=== PATIENT | male | born 1955 | race African-American/Black ===

== ENCOUNTER 2022-03-25 18:23 | Inpatient (IN) | payer OTHER, MEDICAID ==
[~2022-03-25] VITALS: Ht 167.6 cm; Wt 78.5 kg
[2022-03-26] MEDS ORDERED: ONDANSETRON HCL 4MG/2ML INJ IV STA (02:43)
[2022-03-26] MEDS ORDERED: MORPHINE SULFATE 4 MG/ML CPJ (NOT FOR IM USE) IV STA (02:43)
[2022-03-26] MEDS ORDERED: PIPERACILLIN/TAZ 3.375G PREMIX 50 ML IV ONE (02:45)
[2022-03-26] MEDS ORDERED: VANCOMYCIN 1G PREMIX 200 ML IV ONE (02:45)
[2022-03-26] MEDS ORDERED: SODIUM CHLORIDE 0.9% 1,000 ML IV ONE (02:45)
[2022-03-26 04:00] LABS: EOSINOPHILS % 3.8 % (0.0-5.0); HEMATOCRIT. 37.5 % (42.0-52.0); HEMOGLOBIN. 12.6 g/dL (14.0-18.0); LYMPHOCYTES % 15.4 % (20.0-50.0); MEAN CORPUSCULAR HEMOGLOBIN 27.3 pg (28.0-32.0); MEAN CORPUSCULAR VOLUME 81.3 fL (80.0-94.0); MEAN PLATELET VOLUME 8.2 fl (7.4-10.4); MONOCYTES % 11.5 % (2.0-8.0); NEUTROPHILS % 68.3 % (40.0-76.0); PLATELET 468 x1000/uL (130-400); RED BLOOD CELL COUNT 4.61 mill/uL (4.7-6.1); RED CELL DISTRIBUTION WIDTH 15.8 % (11.6-14.6)
[2022-03-26 04:19] LABS: CHLORIDE 111 mEq/L (98-107)
[2022-03-26 04:29] LABS: PROTHROMBIN TIME 10.6 sec (9.6-11.0)
[2022-03-26] MEDS ORDERED: IPRATROPIUM/ALBUTEROL 0.5-3(2.5)MG/3ML NEB NEB PRN (07:15)
[2022-03-26] MEDS ORDERED: MAGNESIUM/ALUMINUM HYDROXIDE/SIMETHICONE 30ML UDC PO PRN (07:15)
[2022-03-26] MEDS ORDERED: CLONIDINE 0.1MG TABLET PO PRN (07:15)
[2022-03-26] MEDS ORDERED: KETOROLAC 15MG/ML VIAL IV PRN (07:15)
[2022-03-26] MEDS ORDERED: GUAIFENESIN 200MG/10ML SUGAR FREE UDC PO PRN (07:15)
[2022-03-26] MEDS ORDERED: DOCUSATE SODIUM 100MG CAPSULE PO PRN (07:15)
[2022-03-26] MEDS ORDERED: DEXTROSE 50% WATER 50ML SYRINGE IV PRN (07:15)
[2022-03-26] MEDS ORDERED: ONDANSETRON HCL 4MG/2ML INJ IV PRN (07:15)
[2022-03-26] MEDS ORDERED: NITROGLYCERIN 0.4MG TABLET SL SL PRN (07:15)
[2022-03-26] MEDS ORDERED: ACETAMINOPHEN 325MG TABLET PO PRN ×2 (07:15)
[2022-03-26] MEDS: BLOOD SUGAR DIAGNOSTIC STRIP TEST SCH ×4 (09:00→22:00)
[2022-03-26] MEDS ORDERED: PIPERACILLIN/TAZOBACTAM 3.375 G in DEXTROSE 5% WATER 50 ML IV SCH (10:00)
[2022-03-26] MEDS ORDERED: VANCOMYCIN 1G PREMIX 200 ML IV SCH (10:00)
[2022-03-26 11:33] LABS: CLARITY URINE CLEAR (CLEAR); COLOR URINE YELLOW (YELLOW); KETONES URINE NEGATIVE (NEGATIVE); LEUKOCYTE ESTERASE URINE NEGATIVE (NEGATIVE); NITRITE URINE NEGATIVE (NEGATIVE); OCCULT BLOOD URINE NEGATIVE (NEGATIVE); PH URINE 6.5 (4.5-8.0); PROTEIN URINE NEGATIVE (NEGATIVE); SPECIFIC GRAVITY URINE 1.016 (1.005-1.030)
[2022-03-26 11:38] VITALS: BP 173/122
[2022-03-26 12:00] VITALS: BP 158/107
[2022-03-26] MEDS: ASPIRIN 325MG EC TABLET PO SCH (12:26)
[2022-03-26] MEDS: ASCORBIC ACID 500 MG TABLET PO SCH ×2 (12:27→22:59)
[2022-03-26] MEDS: FAMOTIDINE 20MG TABLET PO SCH ×2 (12:27→22:59)
[2022-03-26] MEDS: ZINC SULFATE 220 MG ( 50 ) CAPSULE PO SCH (12:28)
[2022-03-26] MEDS: ENOXAPARIN 40MG/0.4ML SYR SUBCUT SCH (12:29)
[2022-03-26] MEDS: LISINOPRIL 20MG TABLET PO SCH ×2 (12:29→23:00)
[2022-03-26] MEDS: AMLODIPINE 10MG TABLET PO SCH (12:29)
[2022-03-26] MEDS: INSULIN LISPRO 100 UNITS/ML SUBCUT SCH ×4 (12:35→23:00)
[2022-03-26 14:00] VITALS: BP 167/98
[2022-03-26 16:00] VITALS: BP 167/97
[2022-03-26 19:31] LABS: FOLIC ACID (FOLATE) SERUM 6.3 ng/mL (>5.38)
[2022-03-26 19:40] LABS: CREATINE KINASE MB FRACTION 3.7 ng/mL (0.5-3.6)
[2022-03-26 19:43] LABS: ETHANOL BLOOD < 10 mg/dL; HDL CHOLESTEROL 57 mg/dL (40-59); LDL CHOLESTEROL 67 mg/dL (5-100); TOTAL IRON BINDING CAPACITY 233 ug/dL (250-450)
[2022-03-26 20:00] VITALS: BP 134/73
[2022-03-26] MEDS ORDERED: ZOLPIDEM TARTRATE 5MG TABLET PO PRN (21:00)
[2022-03-26] MEDS: PIPERACILLIN/TAZOBACTAM 3.375 G in DEXTROSE 5% WATER 50 ML IV SCH (22:57)
[2022-03-26] MEDS: VANCOMYCIN 1G PREMIX 200 ML IV SCH (22:57)
[2022-03-27] VITALS: BP 151/101
[2022-03-27 01:51] LABS: CREATINE KINASE MB FRACTION 3.8 ng/mL (0.5-3.6)
[2022-03-27 04:00] VITALS: BP 156/85
[2022-03-27] MEDS: BLOOD SUGAR DIAGNOSTIC STRIP TEST SCH ×4 (06:52→22:15)
[2022-03-27] MEDS: PIPERACILLIN/TAZOBACTAM 3.375 G in DEXTROSE 5% WATER 50 ML IV SCH ×3 (06:57→22:15)
[2022-03-27] MEDS: INSULIN LISPRO 100 UNITS/ML SUBCUT SCH ×4 (07:20→22:16)
[2022-03-27 08:07] LABS: BASOPHILS % 0.6 % (0.0-2.0); EOSINOPHILS % 0.6 % (0.0-5.0); HEMATOCRIT. 36.1 % (42.0-52.0); HEMOGLOBIN. 11.4 g/dL (14.0-18.0); LYMPHOCYTES % 7.3 % (20.0-50.0); MEAN CORPUSCULAR HEMOGLOBIN 25.7 pg (28.0-32.0); MEAN CORPUSCULAR VOLUME 81.2 fL (80.0-94.0); MEAN PLATELET VOLUME 8.6 fl (7.4-10.4); MONOCYTES % 8.8 % (2.0-8.0); NEUTROPHILS % 82.7 % (40.0-76.0); PLATELET 454 x1000/uL (130-400); RED BLOOD CELL COUNT 4.45 mill/uL (4.7-6.1); RED CELL DISTRIBUTION WIDTH 15.5 % (11.6-14.6)
[2022-03-27 08:27] LABS: CHLORIDE 107 mEq/L (98-107)
[2022-03-27 08:37] LABS: PHOSPHORUS 3.5 mg/dL (2.5-4.9)
[2022-03-27] MEDS: LISINOPRIL 20MG TABLET PO SCH ×2 (09:34→22:16)
[2022-03-27] MEDS: FAMOTIDINE 20MG TABLET PO SCH ×2 (09:34→22:14)
[2022-03-27] MEDS: AMLODIPINE 10MG TABLET PO SCH (09:34)
[2022-03-27] MEDS: ZINC SULFATE 220 MG ( 50 ) CAPSULE PO SCH (09:34)
[2022-03-27] MEDS: ASPIRIN 325MG EC TABLET PO SCH (09:34)
[2022-03-27] MEDS: ENOXAPARIN 40MG/0.4ML SYR SUBCUT SCH (09:35)
[2022-03-27] MEDS: ASCORBIC ACID 500 MG TABLET PO SCH ×2 (09:36→22:14)
[2022-03-27 12:00] VITALS: BP 147/89
[2022-03-27] MEDS: VANCOMYCIN 1G PREMIX 200 ML IV SCH ×2 (12:00→14:35)
[2022-03-27 16:00] VITALS: BP_SYST 172
[2022-03-27 20:00] VITALS: BP 145/92
[2022-03-28] VITALS: BP 157/93
[2022-03-28 04:00] VITALS: BP 139/89
[2022-03-28] MEDS: VANCOMYCIN 1G PREMIX 200 ML IV SCH (06:57)
[2022-03-28] MEDS: PIPERACILLIN/TAZOBACTAM 3.375 G in DEXTROSE 5% WATER 50 ML IV SCH ×3 (06:58→21:59)
[2022-03-28] MEDS: BLOOD SUGAR DIAGNOSTIC STRIP TEST SCH ×4 (06:58→21:43)
[2022-03-28] MEDS: INSULIN LISPRO 100 UNITS/ML SUBCUT SCH ×4 (06:59→21:53)
[2022-03-28 08:00] VITALS: BP 150/82
[2022-03-28] MEDS: LISINOPRIL 20MG TABLET PO SCH ×2 (10:33→21:43)
[2022-03-28] MEDS: ZINC SULFATE 220 MG ( 50 ) CAPSULE PO SCH (10:33)
[2022-03-28] MEDS: FAMOTIDINE 20MG TABLET PO SCH ×2 (10:34→21:43)
[2022-03-28] MEDS: AMLODIPINE 10MG TABLET PO SCH (10:34)
[2022-03-28] MEDS: ASPIRIN 325MG EC TABLET PO SCH (10:34)
[2022-03-28] MEDS: ASCORBIC ACID 500 MG TABLET PO SCH ×2 (10:34→21:42)
[2022-03-28] MEDS: ENOXAPARIN 40MG/0.4ML SYR SUBCUT SCH (10:35)
[2022-03-28 12:00] VITALS: BP 138/91
[2022-03-28 16:00] VITALS: BP 151/70
[2022-03-28 20:00] VITALS: BP 137/91
[2022-03-29] VITALS: BP 130/77
[2022-03-29] MEDS: VANCOMYCIN 1G PREMIX 200 ML IV SCH ×2 (00:47→16:51)
[2022-03-29 04:00] VITALS: BP 148/79
[2022-03-29] MEDS: PIPERACILLIN/TAZOBACTAM 3.375 G in DEXTROSE 5% WATER 50 ML IV SCH ×3 (05:04→22:51)
[2022-03-29] MEDS: BLOOD SUGAR DIAGNOSTIC STRIP TEST SCH ×4 (07:10→21:00)
[2022-03-29] MEDS: INSULIN LISPRO 100 UNITS/ML SUBCUT SCH ×4 (07:20→22:51)
[2022-03-29 07:44] LABS: CHLORIDE 106 mEq/L (98-107)
[2022-03-29 07:51] VITALS: BP 131/89
[2022-03-29] MEDS: ASCORBIC ACID 500 MG TABLET PO SCH ×2 (09:46→21:25)
[2022-03-29] MEDS: ZINC SULFATE 220 MG ( 50 ) CAPSULE PO SCH (09:46)
[2022-03-29] MEDS: ASPIRIN 325MG EC TABLET PO SCH (09:47)
[2022-03-29] MEDS: LISINOPRIL 20MG TABLET PO SCH ×2 (09:47→21:26)
[2022-03-29] MEDS: ENOXAPARIN 40MG/0.4ML SYR SUBCUT SCH (09:47)
[2022-03-29] MEDS: FAMOTIDINE 20MG TABLET PO SCH ×2 (09:47→21:25)
[2022-03-29] MEDS: AMLODIPINE 10MG TABLET PO SCH (09:47)
[2022-03-29 12:00] VITALS: BP 138/84
[2022-03-29 16:00] VITALS: BP 141/81
[2022-03-29 20:00] VITALS: BP 126/78
[2022-03-30 04:39] VITALS: BP 135/66
[2022-03-30] MEDS: PIPERACILLIN/TAZOBACTAM 3.375 G in DEXTROSE 5% WATER 50 ML IV SCH ×3 (06:16→22:01)
[2022-03-30] MEDS: BLOOD SUGAR DIAGNOSTIC STRIP TEST SCH ×4 (06:17→20:31)
[2022-03-30] MEDS: INSULIN LISPRO 100 UNITS/ML SUBCUT SCH ×4 (07:20→20:30)
[2022-03-30 08:00] VITALS: BP 159/86
[2022-03-30] MEDS: AMLODIPINE 10MG TABLET PO SCH (09:23)
[2022-03-30] MEDS: LISINOPRIL 20MG TABLET PO SCH ×2 (09:23→20:29)
[2022-03-30] MEDS: ASPIRIN 325MG EC TABLET PO SCH (09:23)
[2022-03-30] MEDS: ZINC SULFATE 220 MG ( 50 ) CAPSULE PO SCH (09:23)
[2022-03-30] MEDS: ASCORBIC ACID 500 MG TABLET PO SCH ×2 (09:23→20:29)
[2022-03-30] MEDS: ENOXAPARIN 40MG/0.4ML SYR SUBCUT SCH (09:24)
[2022-03-30] MEDS: FAMOTIDINE 20MG TABLET PO SCH ×2 (09:25→20:29)
[2022-03-30 12:00] VITALS: BP 101/48
[2022-03-30] MEDS: VANCOMYCIN 1G PREMIX 200 ML IV SCH (13:40)
[2022-03-30 15:34] VITALS: BP 138/87
[2022-03-30 20:00] VITALS: BP 147/90
[2022-03-31 04:00] VITALS: BP 148/79
[2022-03-31] MEDS: VANCOMYCIN 1G PREMIX 200 ML IV SCH (06:27)
[2022-03-31] MEDS: BLOOD SUGAR DIAGNOSTIC STRIP TEST SCH ×4 (06:27→21:00)
[2022-03-31] MEDS: INSULIN LISPRO 100 UNITS/ML SUBCUT SCH ×4 (07:20→23:34)
[2022-03-31 08:00] VITALS: BP 154/75
[2022-03-31] MEDS: LISINOPRIL 20MG TABLET PO SCH ×2 (10:03→23:00)
[2022-03-31] MEDS: ASPIRIN 325MG EC TABLET PO SCH (10:03)
[2022-03-31] MEDS: ZINC SULFATE 220 MG ( 50 ) CAPSULE PO SCH (10:03)
[2022-03-31] MEDS: ENOXAPARIN 40MG/0.4ML SYR SUBCUT SCH (10:03)
[2022-03-31] MEDS: ASCORBIC ACID 500 MG TABLET PO SCH ×2 (10:03→23:01)
[2022-03-31] MEDS: AMLODIPINE 10MG TABLET PO SCH (10:03)
[2022-03-31] MEDS: FAMOTIDINE 20MG TABLET PO SCH ×2 (10:03→23:01)
[2022-03-31 12:00] VITALS: BP 129/69
[2022-03-31] MEDS: PIPERACILLIN/TAZOBACTAM 3.375 G in DEXTROSE 5% WATER 50 ML IV SCH ×3 (14:55→23:02)
[2022-03-31 16:00] VITALS: BP 145/75
[2022-03-31 20:00] VITALS: BP 136/64
[2022-03-31] MEDS ORDERED: LIDOCAINE HCL 1% 10 MG/ML 10ML VIAL IJ NR (23:15)
[2022-03-31] MEDS ORDERED: ALPRAZOLAM 0.5 MG TABLET PO PRN (23:30)
[2022-04-01] VITALS: BP 136/64
[2022-04-01 04:00] VITALS: BP 145/88
[2022-04-01] MEDS: BLOOD SUGAR DIAGNOSTIC STRIP TEST SCH ×4 (06:50→21:03)
[2022-04-01 06:54] LABS: BASOPHILS % 0.7 % (0.0-2.0); EOSINOPHILS % 3.3 % (0.0-5.0); HEMOGLOBIN. 12.3 g/dL (14.0-18.0); LYMPHOCYTES % 13.9 % (20.0-50.0); MEAN CORPUSCULAR HEMOGLOBIN 27.5 pg (28.0-32.0); MEAN CORPUSCULAR VOLUME 80.8 fL (80.0-94.0); MEAN PLATELET VOLUME 8.1 fl (7.4-10.4); NEUTROPHILS % 70.1 % (40.0-76.0); PLATELET 442 x1000/uL (130-400); RED BLOOD CELL COUNT 4.46 mill/uL (4.7-6.1); RED CELL DISTRIBUTION WIDTH 15.9 % (11.6-14.6)
[2022-04-01 08:00] VITALS: BP 120/84
[2022-04-01] MEDS: INSULIN LISPRO 100 UNITS/ML SUBCUT SCH ×4 (08:31→21:18)
[2022-04-01] MEDS: ASPIRIN 325MG EC TABLET PO SCH (08:33)
[2022-04-01] MEDS: ZINC SULFATE 220 MG ( 50 ) CAPSULE PO SCH (08:33)
[2022-04-01] MEDS: AMLODIPINE 10MG TABLET PO SCH (08:33)
[2022-04-01] MEDS: ASCORBIC ACID 500 MG TABLET PO SCH ×2 (08:34→21:19)
[2022-04-01] MEDS: LISINOPRIL 20MG TABLET PO SCH ×2 (08:34→21:19)
[2022-04-01] MEDS: FAMOTIDINE 20MG TABLET PO SCH ×2 (08:34→21:18)
[2022-04-01] MEDS: ENOXAPARIN 40MG/0.4ML SYR SUBCUT SCH (08:42)
[2022-04-01 14:16] VITALS: BP 138/74
[2022-04-01 15:49] VITALS: BP 138/74
[2022-04-01 20:00] VITALS: BP 135/83
[2022-04-01] MEDS: TRAZODONE HCL 50MG TABLET PO SCH (21:19)
[2022-04-01 22:53] LABS: CHLORIDE 104 mEq/L (98-107)
[2022-04-02 00:30] VITALS: BP 124/88
[2022-04-02] MEDS: HYDROCODONE/ACETAMINOPHEN 5/325MG TABLET PO PRN ×2 (00:47→06:56)
[2022-04-02 04:00] VITALS: BP 123/75
[2022-04-02] MEDS: BLOOD SUGAR DIAGNOSTIC STRIP TEST SCH ×4 (06:33→21:00)
[2022-04-02 08:00] VITALS: BP 126/80
[2022-04-02] MEDS: AMLODIPINE 10MG TABLET PO SCH (09:25)
[2022-04-02] MEDS: ASCORBIC ACID 500 MG TABLET PO SCH ×2 (09:25→21:26)
[2022-04-02] MEDS: ASPIRIN 325MG EC TABLET PO SCH (09:25)
[2022-04-02] MEDS: FAMOTIDINE 20MG TABLET PO SCH ×2 (09:25→21:23)
[2022-04-02] MEDS: ENOXAPARIN 40MG/0.4ML SYR SUBCUT SCH (09:26)
[2022-04-02] MEDS: LISINOPRIL 20MG TABLET PO SCH ×2 (09:26→21:23)
[2022-04-02] MEDS: INSULIN LISPRO 100 UNITS/ML SUBCUT SCH ×4 (09:32→21:23)
[2022-04-02] MEDS: ZINC SULFATE 220 MG ( 50 ) CAPSULE PO SCH (09:36)
[2022-04-02 12:00] VITALS: BP 97/72
[2022-04-02 16:00] VITALS: BP 125/78
[2022-04-02 20:00] VITALS: BP 129/60
[2022-04-02] MEDS: TRAZODONE HCL 50MG TABLET PO SCH (21:26)
[2022-04-03 04:00] VITALS: BP 131/78
[2022-04-03] MEDS: BLOOD SUGAR DIAGNOSTIC STRIP TEST SCH (07:00)
[2022-04-03 08:00] VITALS: BP 120/67
[2022-04-03] MEDS: INSULIN LISPRO 100 UNITS/ML SUBCUT SCH (08:42)
[2022-04-03] MEDS: LISINOPRIL 20MG TABLET PO SCH (08:55)
[2022-04-03] MEDS: AMLODIPINE 10MG TABLET PO SCH (08:55)
[2022-04-03] MEDS: ASPIRIN 325MG EC TABLET PO SCH (08:55)
[2022-04-03] MEDS: ZINC SULFATE 220 MG ( 50 ) CAPSULE PO SCH (08:55)
[2022-04-03] MEDS: ASCORBIC ACID 500 MG TABLET PO SCH (08:55)
[2022-04-03] MEDS: FAMOTIDINE 20MG TABLET PO SCH (08:55)
[2022-04-03] MEDS: ENOXAPARIN 40MG/0.4ML SYR SUBCUT SCH (08:56)
[2022-04-03] MEDS ORDERED: PNEUMOCOCCAL 23-VAL P-SAC VAC 0.5 ML IM ONE (11:00)
== END 2022-04-03 10:20 | DRG 622 ==
LOC: ER 18:23 → 3WST 03-26 03:51 → EDBEDREQ 03-26 03:53 → EDBEDREQTM 03-26 03:53 → SUPCPDRO 03-26 07:03 → 6EST 04-02 02:29
PROVIDERS: ADMIT Internal Medicine; ATTEND Internal Medicine
PROC: 0JBP0ZZ Excision of Left Lower Leg Subcutaneous Tissue and Fascia, Open Approach (ICD-10-PCS; principal; 2022-03-30)
DX: E11.622 Type 2 diabetes mellitus with other skin ulcer (principal); I50.43 Acute on chronic combined systolic (congestive) and diastolic (congestive) heart failure; J96.00 Acute respiratory failure, unspecified whether with hypoxia or hypercapnia; L03.116 Cellulitis of left lower limb; L97.929 Non-pressure chronic ulcer of unspecified part of left lower leg with unspecified severity; E44.0 Moderate protein-calorie malnutrition; I16.1 Hypertensive emergency; J44.1 Chronic obstructive pulmonary disease with (acute) exacerbation; N17.0 Acute kidney failure with tubular necrosis; D63.8 Anemia in other chronic diseases classified elsewhere; E11.9 Type 2 diabetes mellitus without complications; E87.5 Hyperkalemia; E83.51 Hypocalcemia; I11.0 Hypertensive heart disease with heart failure; Z20.822 Contact with and (suspected) exposure to COVID-19; Z86.73 Personal history of transient ischemic attack (TIA), and cerebral infarction without residual deficits; Z89.511 Acquired absence of right leg below knee; Z68.27 Body mass index [BMI] 27.0-27.9, adult
CPT/HCPCS: 36415; 71045; 73590; 80048; 80053; 80061; 80202; 80320; 81003; 82550; 82553; 82607; 82746; 82962; 83036; 83540; 83550; 83605; 83735; 84100; 84145; 84439; 84443; 84484; 85025; 87070; 87077; 87186; 87426; 93923; 93970; 97162; 97166; 97530; 99285; A6261; C1893; J1650; J1815; J1885; J2270; J2405; J2543; J3370; J3490; J7030; J7060; G0480

== ENCOUNTER 2022-06-29 09:19 | Inpatient (IN) | payer OTHER, MEDICAID ==
[~2022-06-29] VITALS: Ht 172.7 cm; Wt 74.8 kg
[2022-06-29] MEDS ORDERED: PIPERACILLIN/TAZ 3.375G PREMIX 50 ML IV ONE (10:15)
[2022-06-29] MEDS ORDERED: VANCOMYCIN 1G PREMIX 200 ML IV ONE (10:15)
[2022-06-29] MEDS ORDERED: SODIUM CHLORIDE 0.9% 1000ML BAG (SEPSIS BOLUS) IV ONE (10:15)
[2022-06-29] MEDS ORDERED: IPRATROPIUM BROMIDE (0.02%) 0.5MG/2.5ML NEB HHN STA (11:07)
[2022-06-29] MEDS ORDERED: METHYLPREDNISOLONE SOD SUCC 125 MG/2 ML VIAL IV STA (11:07)
[2022-06-29 11:54] LABS: BASOPHILS % 0.2 % (0.0-2.0); EOSINOPHILS % 0.1 % (0.0-5.0); HEMATOCRIT. 34.7 % (42.0-52.0); HEMOGLOBIN. 11.7 g/dL (14.0-18.0); LYMPHOCYTES % 8.5 % (20.0-50.0); MEAN CORPUSCULAR HEMOGLOBIN 27.3 pg (28.0-32.0); MEAN CORPUSCULAR VOLUME 81.2 fL (80.0-94.0); MEAN PLATELET VOLUME 7.6 fl (7.4-10.4); MONOCYTES % 5.9 % (2.0-8.0); NEUTROPHILS % 85.3 % (40.0-76.0); PLATELET 464 x1000/uL (130-400); RED BLOOD CELL COUNT 4.28 mill/uL (4.7-6.1); RED CELL DISTRIBUTION WIDTH 16.9 % (11.6-14.6)
[2022-06-29] MEDS: ALBUTEROL (0.083%) 2.5MG/3ML NEB HHN SCH ×3 (11:59→12:01)
[2022-06-29 12:06] LABS: CHLORIDE 104 mEq/L (98-107); INR 1.1; PROTHROMBIN TIME 11.3 sec (9.6-11.0)
[2022-06-29 17:15] LABS: CLARITY URINE CLEAR (CLEAR); COLOR URINE YELLOW (YELLOW); KETONES URINE TRACE (NEGATIVE); LEUKOCYTE ESTERASE URINE TRACE (NEGATIVE); NITRITE URINE NEGATIVE (NEGATIVE); OCCULT BLOOD URINE NEGATIVE (NEGATIVE); PROTEIN URINE TRACE (NEGATIVE); SPECIFIC GRAVITY URINE 1.021 (1.005-1.030)
[2022-06-29] MEDS ORDERED: ACETAMINOPHEN 325MG TABLET PO PRN (18:00)
[2022-06-29] MEDS ORDERED: ONDANSETRON HCL 4MG/2ML INJ IV PRN (18:00)
[2022-06-29] MEDS ORDERED: HYDROCODONE/ACETAMINOPHEN 5/325MG TABLET PO PRN (18:00)
[2022-06-29] MEDS ORDERED: LORAZEPAM 0.5MG TABLET PO PRN (18:00)
[2022-06-29] MEDS ORDERED: DOCUSATE SODIUM 100MG CAPSULE PO PRN (18:00)
[2022-06-29] MEDS ORDERED: IPRATROPIUM/ALBUTEROL 0.5-3(2.5)MG/3ML NEB HHN PRN (18:00)
[2022-06-29] MEDS ORDERED: CLONIDINE 0.1MG TABLET PO PRN (18:00)
[2022-06-29] MEDS: METHYLPREDNISOLONE SOD SUCC 40 MG/ML VIAL IV SCH (19:05)
[2022-06-29 20:35] VITALS: BP 102/57
[2022-06-29] MEDS ORDERED: ALBUTEROL (0.083%) 2.5MG/3ML NEB HHN PRN (21:30)
[2022-06-29] MEDS ORDERED: NALOXONE HCL 0.4MG/ML VIAL IV PRN (21:30)
[2022-06-29] MEDS ORDERED: IPRATROPIUM BROMIDE (0.02%) 0.5MG/2.5ML NEB HHN PRN (21:30)
[2022-06-30] VITALS: BP 129/63
[2022-06-30] MEDS: METHYLPREDNISOLONE SOD SUCC 40 MG/ML VIAL IV SCH ×3 (02:27→17:26)
[2022-06-30 04:00] VITALS: BP 132/66
[2022-06-30 07:51] LABS: HEPATITIS B SURFACE ANTIGEN NEGATIVE
[2022-06-30 08:00] VITALS: BP 125/66
[2022-06-30] MEDS: SODIUM CHLORIDE 0.45% 1,000 ML IV SCH (11:00)
[2022-06-30 12:00] VITALS: BP 115/65
[2022-06-30] MEDS ORDERED: DEXTROSE 50% WATER 50ML SYRINGE IV PRN (14:15)
[2022-06-30 16:00] VITALS: BP 121/64
[2022-06-30] MEDS: BLOOD SUGAR DIAGNOSTIC STRIP TEST SCH ×2 (17:06→21:00)
[2022-06-30] MEDS: INSULIN LISPRO 100 UNITS/ML SUBCUT SCH ×2 (17:24→22:59)
[2022-06-30 20:00] VITALS: BP 109/61
[2022-07-01] VITALS: BP 104/64
[2022-07-01 00:28] LABS: BASOPHILS % 0.1 % (0.0-2.0); CHLORIDE 110 mEq/L (98-107); HEMATOCRIT. 23.7 % (42.0-52.0); HEMOGLOBIN. 8.2 g/dL (14.0-18.0); LYMPHOCYTES % 7.1 % (20.0-50.0); MEAN CORPUSCULAR HEMOGLOBIN 27.5 pg (28.0-32.0); NEUTROPHILS % 86.8 % (40.0-76.0); PLATELET 413 x1000/uL (130-400); RED BLOOD CELL COUNT 2.97 mill/uL (4.7-6.1); RED CELL DISTRIBUTION WIDTH 17.1 % (11.6-14.6)
[2022-07-01 00:43] LABS: CREATINE KINASE 39 IU/L (39-308)
[2022-07-01] MEDS: METHYLPREDNISOLONE SOD SUCC 40 MG/ML VIAL IV SCH ×3 (03:01→17:55)
[2022-07-01] MEDS: SODIUM CHLORIDE 0.45% 1,000 ML IV SCH ×2 (03:40→22:32)
[2022-07-01 04:00] VITALS: BP 106/62
[2022-07-01] MEDS ORDERED: LACTATED RINGERS 1,000 ML IV SCH (04:30)
[2022-07-01] MEDS: BLOOD SUGAR DIAGNOSTIC STRIP TEST SCH ×4 (05:59→21:00)
[2022-07-01] MEDS: INSULIN LISPRO 100 UNITS/ML SUBCUT SCH ×4 (06:25→22:54)
[2022-07-01 08:00] VITALS: BP 118/67
[2022-07-01 12:00] VITALS: BP 123/62
[2022-07-01] MEDS ORDERED: LIDOCAINE HCL 1% 10 MG/ML 10ML VIAL ONE (12:23)
[2022-07-01 16:00] VITALS: BP 123/56
[2022-07-01 20:00] VITALS: BP 117/69
[2022-07-02] VITALS: BP 138/72
[2022-07-02] MEDS: METHYLPREDNISOLONE SOD SUCC 40 MG/ML VIAL IV SCH ×3 (03:01→18:37)
[2022-07-02 04:00] VITALS: BP 132/62
[2022-07-02] MEDS: BLOOD SUGAR DIAGNOSTIC STRIP TEST SCH ×4 (06:24→21:00)
[2022-07-02] MEDS: INSULIN LISPRO 100 UNITS/ML SUBCUT SCH ×4 (06:28→21:00)
[2022-07-02 08:00] VITALS: BP 116/75
[2022-07-02 12:00] VITALS: BP 123/65
[2022-07-02] MEDS: SODIUM CHLORIDE 0.45% 1,000 ML IV SCH (13:47)
[2022-07-02 16:00] VITALS: BP 116/69
[2022-07-02] MEDS ORDERED: NA PHOS,M-B/NA PHOS,DI-BA ENEMA 118ML PR NR (16:30)
[2022-07-02 16:44] LABS: CHLORIDE 103 mEq/L (98-107)
[2022-07-02 16:54] LABS: BASOPHILS % 0.1 % (0.0-2.0); EOSINOPHILS % 0.1 % (0.0-5.0); LYMPHOCYTES % 9.6 % (20.0-50.0); MEAN CORPUSCULAR HEMOGLOBIN 27.4 pg (28.0-32.0); MEAN CORPUSCULAR VOLUME 78.9 fL (80.0-94.0); MONOCYTES % 6.6 % (2.0-8.0); NEUTROPHILS % 83.6 % (40.0-76.0); PLATELET 344 x1000/uL (130-400); RED BLOOD CELL COUNT 2.65 mill/uL (4.7-6.1); RED CELL DISTRIBUTION WIDTH 16.8 % (11.6-14.6)
[2022-07-02 17:07] LABS: HEMATOCRIT. 20.9 % (42.0-52.0)
[2022-07-02 17:08] LABS: HEMOGLOBIN. 7.3 g/dL (14.0-18.0)
[2022-07-02 17:59] LABS: TOTAL IRON BINDING CAPACITY 187 ug/dL (250-450)
[2022-07-02 18:29] LABS: FOLIC ACID (FOLATE) SERUM 5.5 ng/mL (>5.38)
[2022-07-02] MEDS: DOCUSATE SODIUM 100MG CAPSULE PO SCH (18:36)
[2022-07-02] MEDS: SENNOSIDES/DOCUSATE SOD 8.6/50MG TABLET PO SCH (21:00)
[2022-07-02] MEDS: LACTULOSE 20G/30ML UDC PO SCH (22:00)
[2022-07-03] MEDS: METHYLPREDNISOLONE SOD SUCC 40 MG/ML VIAL IV SCH ×3 (02:00→17:06)
[2022-07-03] MEDS: LACTULOSE 20G/30ML UDC PO SCH ×4 (06:00→21:50)
[2022-07-03] MEDS: BLOOD SUGAR DIAGNOSTIC STRIP TEST SCH ×4 (06:40→21:35)
[2022-07-03] MEDS: INSULIN LISPRO 100 UNITS/ML SUBCUT SCH ×4 (07:10→21:50)
[2022-07-03 07:49] LABS: BASOPHILS % 0.1 % (0.0-2.0); EOSINOPHILS % 0.2 % (0.0-5.0); HEMATOCRIT. 23.7 % (42.0-52.0); HEMOGLOBIN. 8.2 g/dL (14.0-18.0); LYMPHOCYTES % 20.4 % (20.0-50.0); MEAN CORPUSCULAR HEMOGLOBIN 27.4 pg (28.0-32.0); MEAN CORPUSCULAR VOLUME 78.9 fL (80.0-94.0); MEAN PLATELET VOLUME 7.9 fl (7.4-10.4); NEUTROPHILS % 69.3 % (40.0-76.0); PLATELET 440 x1000/uL (130-400); RED CELL DISTRIBUTION WIDTH 16.9 % (11.6-14.6)
[2022-07-03 09:18] LABS: CHLORIDE 103 mEq/L (98-107)
[2022-07-03] MEDS: DOCUSATE SODIUM 100MG CAPSULE PO SCH ×2 (09:32→17:06)
[2022-07-03] MEDS: BISACODYL 10MG SUPP PR SCH (09:32)
[2022-07-03 12:00] VITALS: BP 123/70
[2022-07-03 16:00] VITALS: BP 96/55
[2022-07-03 20:00] VITALS: BP 124/59
[2022-07-03] MEDS: SENNOSIDES/DOCUSATE SOD 8.6/50MG TABLET PO SCH (21:50)
[2022-07-04] VITALS (71 sets, daily range): BP systolic 74–190; BP diastolic 35–112
[2022-07-04] MEDS: METHYLPREDNISOLONE SOD SUCC 40 MG/ML VIAL IV SCH (02:00)
[2022-07-04] MEDS: BLOOD SUGAR DIAGNOSTIC STRIP TEST SCH ×4 (06:07→21:01)
[2022-07-04] MEDS: LACTULOSE 20G/30ML UDC PO SCH ×3 (06:14→21:02)
[2022-07-04] MEDS: INSULIN LISPRO 100 UNITS/ML SUBCUT SCH ×4 (06:15→20:53)
[2022-07-04 07:09] LABS: HEMATOCRIT. 25.2 % (42.0-52.0); HEMOGLOBIN. 8.3 g/dL (14.0-18.0); LYMPHOCYTES % 11.9 % (20.0-50.0); MEAN CORPUSCULAR HEMOGLOBIN 27.6 pg (28.0-32.0); MEAN CORPUSCULAR VOLUME 83.9 fL (80.0-94.0); MEAN PLATELET VOLUME 7.9 fl (7.4-10.4); MONOCYTES % 9.8 % (2.0-8.0); NEUTROPHILS % 78.3 % (40.0-76.0); PLATELET 397 x1000/uL (130-400)
[2022-07-04 07:23] LABS: CHLORIDE 104 mEq/L (98-107); PHOSPHORUS 2.6 mg/dL (2.5-4.9)
[2022-07-04] MEDS ORDERED: CEFTRIAXONE 1 G PREMIX 50 ML IV SCH (08:45)
[2022-07-04] MEDS ORDERED: NOREPINEPHRINE 8 MG in DEXT 5% WATER 242 ML IV PRN (09:00)
[2022-07-04] MEDS: DOCUSATE SODIUM 100MG CAPSULE PO SCH ×2 (09:56→17:16)
[2022-07-04] MEDS: BISACODYL 10MG SUPP PR SCH (09:57)
[2022-07-04] MEDS: CEFTRIAXONE 1,000 MG in DEXTROSE 5% WATER 50 ML IV SCH (10:14)
[2022-07-04 12:49] LABS: HEMATOCRIT 19.5 % (42.0-52.0); HEMOGLOBIN 6.7 g/dL (14.0-18.0)
[2022-07-04] MEDS: ACETAMINOPHEN 325MG TABLET PO PRN (17:15)
[2022-07-04] MEDS: SODIUM CHLORIDE 0.9% 1,000 ML IV SCH (18:00)
[2022-07-04 20:17] LABS: HEMATOCRIT 25.2 % (42.0-52.0); HEMOGLOBIN 8.8 g/dL (14.0-18.0)
[2022-07-04] MEDS: SENNOSIDES/DOCUSATE SOD 8.6/50MG TABLET PO SCH (20:50)
[2022-07-05] VITALS (44 sets, daily range): BP systolic 87–188; BP diastolic 28–88
[2022-07-05 00:47] LABS: HEMATOCRIT 24.8 % (42.0-52.0); HEMOGLOBIN 8.5 g/dL (14.0-18.0)
[2022-07-05] MEDS: INSULIN LISPRO 100 UNITS/ML SUBCUT SCH ×5 (05:15→20:49)
[2022-07-05] MEDS: LACTULOSE 20G/30ML UDC PO SCH ×4 (05:47→21:19)
[2022-07-05] MEDS: BLOOD SUGAR DIAGNOSTIC STRIP TEST SCH ×4 (05:50→20:32)
[2022-07-05 06:02] LABS: BASOPHILS % 0.2 % (0.0-2.0); EOSINOPHILS % 0.1 % (0.0-5.0); HEMOGLOBIN. 7.1 g/dL (14.0-18.0); MEAN CORPUSCULAR HEMOGLOBIN 29.2 pg (28.0-32.0); MEAN CORPUSCULAR VOLUME 83.8 fL (80.0-94.0); MEAN PLATELET VOLUME 8.2 fl (7.4-10.4); NEUTROPHILS % 80.7 % (40.0-76.0); PLATELET 103 x1000/uL (130-400); RED BLOOD CELL COUNT 2.41 mill/uL (4.7-6.1); RED CELL DISTRIBUTION WIDTH 16.6 % (11.6-14.6)
[2022-07-05 06:11] LABS: CHLORIDE 104 mEq/L (98-107)
[2022-07-05 06:20] LABS: HEMATOCRIT. 20.2 % (42.0-52.0)
[2022-07-05 06:49] LABS: PHOSPHORUS 2.3 mg/dL (2.5-4.9)
[2022-07-05] MEDS ORDERED: SODIUM PHOS,M-BASIC-D-BASIC 20 MM in DEXT 5% WATER 243.3333 ML IV NR (09:00)
[2022-07-05] MEDS: CEFTRIAXONE 1,000 MG in DEXTROSE 5% WATER 50 ML IV SCH (09:20)
[2022-07-05] MEDS: DOCUSATE SODIUM 100MG CAPSULE PO SCH ×2 (09:21→17:01)
[2022-07-05] MEDS: BISACODYL 10MG SUPP PR SCH (09:21)
[2022-07-05] MEDS: SODIUM CHLORIDE 0.9% 1,000 ML IV SCH ×2 (09:22→23:50)
[2022-07-05] MEDS ORDERED: SORBITOL 70% SOLN 30ML PO NR (20:15)
[2022-07-05] MEDS: SENNOSIDES/DOCUSATE SOD 8.6/50MG TABLET PO SCH (20:33)
[2022-07-06] VITALS (13 sets, daily range): BP systolic 83–130; BP diastolic 53–66
[2022-07-06] MEDS: BLOOD SUGAR DIAGNOSTIC STRIP TEST SCH ×4 (05:42→21:00)
[2022-07-06] MEDS: LACTULOSE 20G/30ML UDC PO SCH ×3 (06:00→21:04)
[2022-07-06] MEDS: INSULIN LISPRO 100 UNITS/ML SUBCUT SCH ×4 (06:13→21:03)
[2022-07-06 07:08] LABS: BASOPHILS % 0.1 % (0.0-2.0); EOSINOPHILS % 1.3 % (0.0-5.0); LYMPHOCYTES % 11.7 % (20.0-50.0); MEAN CORPUSCULAR HEMOGLOBIN 28.9 pg (28.0-32.0); MEAN CORPUSCULAR VOLUME 84.7 fL (80.0-94.0); MEAN PLATELET VOLUME 8.4 fl (7.4-10.4); MONOCYTES % 6.4 % (2.0-8.0); NEUTROPHILS % 80.5 % (40.0-76.0); PLATELET 264 x1000/uL (130-400); RED BLOOD CELL COUNT 2.31 mill/uL (4.7-6.1); RED CELL DISTRIBUTION WIDTH 17.3 % (11.6-14.6)
[2022-07-06 07:36] LABS: HEMATOCRIT. 19.6 % (42.0-52.0); HEMOGLOBIN. 6.7 g/dL (14.0-18.0)
[2022-07-06] MEDS: DOCUSATE SODIUM 100MG CAPSULE PO SCH ×2 (09:00→17:00)
[2022-07-06] MEDS: BISACODYL 10MG SUPP PR SCH (09:00)
[2022-07-06 09:48] LABS: CHLORIDE 114 mEq/L (98-107)
[2022-07-06 09:56] LABS: PHOSPHORUS 2.2 mg/dL (2.5-4.9)
[2022-07-06] MEDS: SORBITOL 70% SOLN 30ML PO SCH ×2 (16:00→20:35)
[2022-07-06] MEDS: CEFTRIAXONE 1,000 MG in DEXTROSE 5% WATER 50 ML IV SCH (16:46)
[2022-07-06] MEDS: SODIUM CHLORIDE 0.9% 1,000 ML IV SCH (17:30)
[2022-07-06 19:50] LABS: HEMATOCRIT 27.3 % (42.0-52.0); HEMOGLOBIN 9.5 g/dL (14.0-18.0)
[2022-07-06] MEDS ORDERED: POTASSIUM CHLORIDE 20MEQ TABLET SR PO NR (20:15)
[2022-07-06] MEDS: ACETAMINOPHEN 325MG TABLET PO PRN (20:36)
[2022-07-06] MEDS: SENNOSIDES/DOCUSATE SOD 8.6/50MG TABLET PO SCH (20:36)
[2022-07-06] MEDS: SUCRALFATE 1G TABLET PO SCH (20:36)
[2022-07-06] MEDS: PANTOPRAZOLE SODIUM 40 MG/VIAL IV SCH (20:39)
[2022-07-07] VITALS (25 sets, daily range): BP systolic 96–148; BP diastolic 42–94
[2022-07-07 01:14] LABS: HEMATOCRIT 27.2 % (42.0-52.0); HEMOGLOBIN 9.5 g/dL (14.0-18.0)
[2022-07-07] MEDS: LACTULOSE 20G/30ML UDC PO SCH ×4 (06:00→22:11)
[2022-07-07] MEDS: BLOOD SUGAR DIAGNOSTIC STRIP TEST SCH ×4 (06:01→21:00)
[2022-07-07] MEDS: SUCRALFATE 1G TABLET PO SCH ×3 (06:01→21:54)
[2022-07-07] MEDS: INSULIN LISPRO 100 UNITS/ML SUBCUT SCH ×5 (06:06→22:11)
[2022-07-07 07:39] LABS: BASOPHILS % 0.1 % (0.0-2.0); EOSINOPHILS % 2.7 % (0.0-5.0); HEMATOCRIT. 28.4 % (42.0-52.0); HEMOGLOBIN. 9.9 g/dL (14.0-18.0); LYMPHOCYTES % 12.5 % (20.0-50.0); MEAN CORPUSCULAR VOLUME 85.7 fL (80.0-94.0); MEAN PLATELET VOLUME 7.8 fl (7.4-10.4); MONOCYTES % 8.4 % (2.0-8.0); NEUTROPHILS % 76.3 % (40.0-76.0); PLATELET 261 x1000/uL (130-400); RED BLOOD CELL COUNT 3.32 mill/uL (4.7-6.1)
[2022-07-07 07:57] LABS: PROTHROMBIN TIME 11.1 sec (9.6-11.0)
[2022-07-07 08:24] LABS: CHLORIDE 103 mEq/L (98-107)
[2022-07-07] MEDS: DOCUSATE SODIUM 100MG CAPSULE PO SCH ×2 (09:00→17:01)
[2022-07-07] MEDS: BISACODYL 10MG SUPP PR SCH (09:00)
[2022-07-07] MEDS: PANTOPRAZOLE SODIUM 40 MG/VIAL IV SCH ×2 (09:00→21:54)
[2022-07-07] MEDS: POTASSIUM-SODIUM PHOSPHATE POWDER PACKET PO SCH ×3 (09:00→18:45)
[2022-07-07] MEDS: SODIUM CHLORIDE 0.9% 1,000 ML IV SCH (10:11)
[2022-07-07 12:03] LABS: HEMATOCRIT 24.5 % (42.0-52.0); HEMOGLOBIN 8.4 g/dL (14.0-18.0)
[2022-07-07] MEDS ORDERED: HEPARIN 1000 UNITS/ML 10ML ONE (12:40)
[2022-07-07] MEDS ORDERED: NOREPINEPHRINE 8 MG in DEXT 5% WATER 242 ML IV PRN (15:00)
[2022-07-07] MEDS: METOCLOPRAMIDE HCL 10MG/2ML VIAL IV SCH ×2 (16:20→21:53)
[2022-07-07] MEDS: SORBITOL 70% SOLN 30ML PO SCH ×2 (16:20→21:53)
[2022-07-07] MEDS: DEXT 5%/0.9% NACL 1,000 ML IV SCH (16:20)
[2022-07-07] MEDS: BISACODYL 5MG TABLET PO SCH ×2 (17:01→21:52)
[2022-07-07] MEDS: CEFTRIAXONE 1,000 MG in DEXTROSE 5% WATER 50 ML IV SCH (17:02)
[2022-07-07 19:33] LABS: HEMATOCRIT 30.2 % (42.0-52.0); HEMOGLOBIN 10.1 g/dL (14.0-18.0)
[2022-07-07] MEDS: SENNOSIDES/DOCUSATE SOD 8.6/50MG TABLET PO SCH (21:54)
[2022-07-08] VITALS (23 sets, daily range): BP systolic 94–136; BP diastolic 53–88
[2022-07-08 00:43] LABS: HEMATOCRIT 29.4 % (42.0-52.0); HEMOGLOBIN 9.9 g/dL (14.0-18.0)
[2022-07-08] MEDS: SORBITOL 70% SOLN 30ML PO SCH ×2 (00:53→04:32)
[2022-07-08] MEDS: METOCLOPRAMIDE HCL 10MG/2ML VIAL IV SCH ×2 (00:53→04:32)
[2022-07-08] MEDS: BISACODYL 5MG TABLET PO SCH ×2 (00:53→04:32)
[2022-07-08 03:41] LABS: BASOPHILS % 0.4 % (0.0-2.0); HEMATOCRIT. 29.4 % (42.0-52.0); HEMOGLOBIN. 9.7 g/dL (14.0-18.0); LYMPHOCYTES % 6.7 % (20.0-50.0); MEAN CORPUSCULAR HEMOGLOBIN 29.2 pg (28.0-32.0); MEAN CORPUSCULAR VOLUME 88.3 fL (80.0-94.0); MEAN PLATELET VOLUME 7.8 fl (7.4-10.4); MONOCYTES % 8.2 % (2.0-8.0); NEUTROPHILS % 83.7 % (40.0-76.0); PLATELET 261 x1000/uL (130-400); RED BLOOD CELL COUNT 3.32 mill/uL (4.7-6.1); RED CELL DISTRIBUTION WIDTH 15.9 % (11.6-14.6)
[2022-07-08 03:47] LABS: INR 1.1; PROTHROMBIN TIME 11.9 sec (9.6-11.0)
[2022-07-08] MEDS: LACTULOSE 20G/30ML UDC PO SCH ×4 (06:00→21:27)
[2022-07-08] MEDS: DEXT 5%/0.9% NACL 1,000 ML IV SCH (07:49)
[2022-07-08] MEDS: BLOOD SUGAR DIAGNOSTIC STRIP TEST SCH ×4 (08:05→21:00)
[2022-07-08] MEDS: DOCUSATE SODIUM 100MG CAPSULE PO SCH ×2 (09:00→16:25)
[2022-07-08] MEDS: PANTOPRAZOLE SODIUM 40 MG/VIAL IV SCH ×2 (09:06→20:53)
[2022-07-08] MEDS: SUCRALFATE 1G TABLET PO SCH ×4 (09:06→20:53)
[2022-07-08] MEDS: INSULIN LISPRO 100 UNITS/ML SUBCUT SCH ×4 (09:07→21:00)
[2022-07-08] MEDS: POTASSIUM-SODIUM PHOSPHATE POWDER PACKET PO SCH ×2 (09:07→17:00)
[2022-07-08 09:42] LABS: HEMATOCRIT 30.7 % (42.0-52.0); HEMOGLOBIN 10.3 g/dL (14.0-18.0)
[2022-07-08 09:54] LABS: CHLORIDE 107 mEq/L (98-107)
[2022-07-08] MEDS ORDERED: IOHEXOL-350 100 ML BOTTLE ONE (14:00)
[2022-07-08] MEDS ORDERED: PROPOFOL 200MG/20ML VIAL IV ONE (15:19)
[2022-07-08 17:00] LABS: HEMATOCRIT 26.9 % (42.0-52.0); HEMOGLOBIN 9.1 g/dL (14.0-18.0)
[2022-07-08] MEDS: CEFTRIAXONE 1,000 MG in DEXTROSE 5% WATER 50 ML IV SCH (17:17)
[2022-07-08] MEDS: SENNOSIDES/DOCUSATE SOD 8.6/50MG TABLET PO SCH (20:53)
[2022-07-09] VITALS (20 sets, daily range): BP systolic 110–150; BP diastolic 43–103
[2022-07-09] MEDS: DEXT 5%/0.9% NACL 1,000 ML IV SCH (02:31)
[2022-07-09] MEDS: LACTULOSE 20G/30ML UDC PO SCH ×3 (06:00→22:00)
[2022-07-09] MEDS: BLOOD SUGAR DIAGNOSTIC STRIP TEST SCH ×4 (06:14→21:47)
[2022-07-09] MEDS: DOCUSATE SODIUM 100MG CAPSULE PO SCH ×2 (08:31→18:18)
[2022-07-09] MEDS: INSULIN LISPRO 100 UNITS/ML SUBCUT SCH ×4 (08:31→21:00)
[2022-07-09] MEDS: POTASSIUM-SODIUM PHOSPHATE POWDER PACKET PO SCH ×2 (08:31→18:19)
[2022-07-09] MEDS: SUCRALFATE 1G TABLET PO SCH ×4 (08:31→21:46)
[2022-07-09] MEDS: PANTOPRAZOLE SODIUM 40 MG/VIAL IV SCH ×2 (08:31→21:47)
[2022-07-09 10:27] LABS: BASOPHILS % 0.3 % (0.0-2.0); EOSINOPHILS % 1.2 % (0.0-5.0); HEMATOCRIT. 29.8 % (42.0-52.0); LYMPHOCYTES % 11.2 % (20.0-50.0); MEAN CORPUSCULAR HEMOGLOBIN 29.9 pg (28.0-32.0); MEAN CORPUSCULAR VOLUME 88.8 fL (80.0-94.0); MEAN PLATELET VOLUME 7.7 fl (7.4-10.4); MONOCYTES % 6.4 % (2.0-8.0); NEUTROPHILS % 80.9 % (40.0-76.0); PLATELET 346 x1000/uL (130-400); RED BLOOD CELL COUNT 3.36 mill/uL (4.7-6.1); RED CELL DISTRIBUTION WIDTH 14.7 % (11.6-14.6)
[2022-07-09 10:44] LABS: CHLORIDE 108 mEq/L (98-107)
[2022-07-09] MEDS ORDERED: IOHEXOL-350 100 ML BOTTLE ONE (11:11)
[2022-07-09] MEDS ORDERED: PANT40TA51 MT (13:11)
[2022-07-09] MEDS ORDERED: SUCR1TAB30 PO (13:11)
[2022-07-09] MEDS ORDERED: POTASSIUM CHLORIDE 20MEQ TABLET SR PO NR (13:15)
[2022-07-09] MEDS: CEFTRIAXONE 1,000 MG in DEXTROSE 5% WATER 50 ML IV SCH (18:20)
[2022-07-09] MEDS: SENNOSIDES/DOCUSATE SOD 8.6/50MG TABLET PO SCH (21:46)
[2022-07-10] VITALS (16 sets, daily range): BP systolic 83–143; BP diastolic 23–84
[2022-07-10] MEDS: LACTULOSE 20G/30ML UDC PO SCH ×3 (06:00→22:00)
[2022-07-10] MEDS: BLOOD SUGAR DIAGNOSTIC STRIP TEST SCH ×4 (07:20→20:32)
[2022-07-10] MEDS: SUCRALFATE 1G TABLET PO SCH ×5 (07:20→20:32)
[2022-07-10 07:32] LABS: BASOPHILS % 0.3 % (0.0-2.0); EOSINOPHILS % 1.5 % (0.0-5.0); HEMATOCRIT. 25.9 % (42.0-52.0); HEMOGLOBIN. 8.6 g/dL (14.0-18.0); LYMPHOCYTES % 13.7 % (20.0-50.0); MEAN CORPUSCULAR HEMOGLOBIN 30.1 pg (28.0-32.0); MEAN CORPUSCULAR VOLUME 90.9 fL (80.0-94.0); MEAN PLATELET VOLUME 7.6 fl (7.4-10.4); MONOCYTES % 9.1 % (2.0-8.0); NEUTROPHILS % 75.4 % (40.0-76.0); PLATELET 289 x1000/uL (130-400); RED BLOOD CELL COUNT 2.85 mill/uL (4.7-6.1); RED CELL DISTRIBUTION WIDTH 16.3 % (11.6-14.6)
[2022-07-10] MEDS: INSULIN LISPRO 100 UNITS/ML SUBCUT SCH ×4 (07:50→20:33)
[2022-07-10 08:46] LABS: CHLORIDE 109 mEq/L (98-107)
[2022-07-10] MEDS: POTASSIUM-SODIUM PHOSPHATE POWDER PACKET PO SCH ×2 (09:00→18:35)
[2022-07-10] MEDS: DOCUSATE SODIUM 100MG CAPSULE PO SCH ×2 (09:00→18:35)
[2022-07-10] MEDS: PANTOPRAZOLE SODIUM 40 MG/VIAL IV SCH ×2 (09:00→20:35)
[2022-07-10] MEDS: SODIUM CHLORIDE 0.9% 1,000 ML IV SCH ×3 (09:30→23:43)
[2022-07-10 10:35] LABS: HEMATOCRIT 19.2 % (42.0-52.0); HEMOGLOBIN 6.5 g/dL (14.0-18.0)
[2022-07-10] MEDS: SENNOSIDES/DOCUSATE SOD 8.6/50MG TABLET PO SCH (20:32)
[2022-07-11] VITALS (12 sets, daily range): BP systolic 105–136; BP diastolic 55–79
[2022-07-11 04:52] LABS: INR 1.1; PROTHROMBIN TIME 11.9 sec (9.6-11.0)
[2022-07-11 05:59] LABS: CHLORIDE 112 mEq/L (98-107)
[2022-07-11] MEDS: LACTULOSE 20G/30ML UDC PO SCH ×3 (06:00→23:07)
[2022-07-11] MEDS: SODIUM CHLORIDE 0.9% 1,000 ML IV SCH ×3 (06:02→23:08)
[2022-07-11 06:17] LABS: BASOPHILS % 0.3 % (0.0-2.0); EOSINOPHILS % 0.6 % (0.0-5.0); HEMATOCRIT. 25.7 % (42.0-52.0); HEMOGLOBIN. 8.6 g/dL (14.0-18.0); LYMPHOCYTES % 8.4 % (20.0-50.0); MEAN CORPUSCULAR HEMOGLOBIN 29.1 pg (28.0-32.0); MEAN CORPUSCULAR VOLUME 87.1 fL (80.0-94.0); MEAN PLATELET VOLUME 7.7 fl (7.4-10.4); MONOCYTES % 5.2 % (2.0-8.0); NEUTROPHILS % 85.5 % (40.0-76.0); PLATELET 204 x1000/uL (130-400); RED BLOOD CELL COUNT 2.95 mill/uL (4.7-6.1); RED CELL DISTRIBUTION WIDTH 16.6 % (11.6-14.6)
[2022-07-11] MEDS: BLOOD SUGAR DIAGNOSTIC STRIP TEST SCH ×4 (06:37→23:07)
[2022-07-11] MEDS: SUCRALFATE 1G TABLET PO SCH ×4 (07:36→23:07)
[2022-07-11] MEDS: INSULIN LISPRO 100 UNITS/ML SUBCUT SCH ×4 (07:36→23:05)
[2022-07-11] MEDS: DOCUSATE SODIUM 100MG CAPSULE PO SCH ×2 (08:58→17:00)
[2022-07-11] MEDS: PANTOPRAZOLE SODIUM 40 MG/VIAL IV SCH ×2 (08:58→23:07)
[2022-07-11] MEDS: POTASSIUM-SODIUM PHOSPHATE POWDER PACKET PO SCH ×2 (08:59→19:09)
[2022-07-11] MEDS ORDERED: POTASSIUM CHLORIDE 20MEQ/PACKET PO SCH (09:00)
[2022-07-11] MEDS: SORBITOL 70% SOLN 30ML PO SCH ×3 (10:30→14:30)
[2022-07-11] MEDS: METOCLOPRAMIDE HCL 10MG/2ML VIAL IV SCH ×2 (11:30→14:00)
[2022-07-11] MEDS: BISACODYL 5MG TABLET PO SCH ×2 (11:30→14:00)
[2022-07-11] MEDS ORDERED: POTASSIUM CHLORIDE 20MEQ/PACKET PO NR (18:00)
[2022-07-11] MEDS: SENNOSIDES/DOCUSATE SOD 8.6/50MG TABLET PO SCH (23:08)
[2022-07-11] MEDS: GUAIFENESIN 600MG ER TABLET PO SCH (23:08)
[2022-07-12] VITALS (12 sets, daily range): BP systolic 112–150; BP diastolic 65–90
[2022-07-12 03:06] LABS: BASOPHILS % 0.4 % (0.0-2.0); HEMATOCRIT. 26.5 % (42.0-52.0); HEMOGLOBIN. 9.1 g/dL (14.0-18.0); LYMPHOCYTES % 11.8 % (20.0-50.0); MEAN CORPUSCULAR HEMOGLOBIN 29.7 pg (28.0-32.0); MEAN CORPUSCULAR VOLUME 86.4 fL (80.0-94.0); MEAN PLATELET VOLUME 6.9 fl (7.4-10.4); MONOCYTES % 7.3 % (2.0-8.0); NEUTROPHILS % 79.5 % (40.0-76.0); PLATELET 248 x1000/uL (130-400); RED BLOOD CELL COUNT 3.07 mill/uL (4.7-6.1); RED CELL DISTRIBUTION WIDTH 16.1 % (11.6-14.6)
[2022-07-12 03:14] LABS: INR 1.1; PROTHROMBIN TIME 11.3 sec (9.6-11.0)
[2022-07-12 03:43] LABS: CHLORIDE 112 mEq/L (98-107)
[2022-07-12] MEDS: INSULIN LISPRO 100 UNITS/ML SUBCUT SCH ×4 (07:49→21:00)
[2022-07-12] MEDS: BLOOD SUGAR DIAGNOSTIC STRIP TEST SCH ×4 (07:49→21:00)
[2022-07-12] MEDS ORDERED: POTASSIUM CHLORIDE INJ 40 MEQ in DEXT 5% WATER 500 ML IV NR (08:30)
[2022-07-12] MEDS: PANTOPRAZOLE SODIUM 40 MG/VIAL IV SCH ×2 (08:52→22:17)
[2022-07-12] MEDS: POTASSIUM-SODIUM PHOSPHATE POWDER PACKET PO SCH ×2 (08:52→16:39)
[2022-07-12] MEDS: DOCUSATE SODIUM 100MG CAPSULE PO SCH ×2 (08:52→16:39)
[2022-07-12] MEDS: GUAIFENESIN 600MG ER TABLET PO SCH ×2 (08:52→22:17)
[2022-07-12] MEDS: SUCRALFATE 1G TABLET PO SCH ×4 (08:53→22:17)
[2022-07-12] MEDS: SODIUM CHLORIDE 0.9% 1,000 ML IV SCH (08:53)
[2022-07-12] MEDS: LACTULOSE 20G/30ML UDC PO SCH ×2 (13:02→22:17)
[2022-07-12] MEDS: SENNOSIDES/DOCUSATE SOD 8.6/50MG TABLET PO SCH (22:17)
[2022-07-13] VITALS (13 sets, daily range): BP systolic 120–144; BP diastolic 69–84
[2022-07-13 00:43] LABS: HEMATOCRIT 26.2 % (42.0-52.0)
[2022-07-13] MEDS: LACTULOSE 20G/30ML UDC PO SCH ×2 (05:22→12:24)
[2022-07-13 06:10] LABS: BASOPHILS % 0.7 % (0.0-2.0); EOSINOPHILS % 1.2 % (0.0-5.0); HEMOGLOBIN. 9.2 g/dL (14.0-18.0); LYMPHOCYTES % 10.1 % (20.0-50.0); MEAN CORPUSCULAR HEMOGLOBIN 29.6 pg (28.0-32.0); MEAN CORPUSCULAR VOLUME 87.2 fL (80.0-94.0); MEAN PLATELET VOLUME 7.8 fl (7.4-10.4); MONOCYTES % 7.4 % (2.0-8.0); NEUTROPHILS % 80.6 % (40.0-76.0); PLATELET 271 x1000/uL (130-400); RED CELL DISTRIBUTION WIDTH 16.3 % (11.6-14.6)
[2022-07-13] MEDS: SUCRALFATE 1G TABLET PO SCH ×4 (07:30→21:27)
[2022-07-13] MEDS: BLOOD SUGAR DIAGNOSTIC STRIP TEST SCH ×4 (07:30→20:44)
[2022-07-13 07:53] LABS: CHLORIDE 110 mEq/L (98-107)
[2022-07-13] MEDS: INSULIN LISPRO 100 UNITS/ML SUBCUT SCH ×3 (08:00→17:40)
[2022-07-13] MEDS: GUAIFENESIN 600MG ER TABLET PO SCH ×2 (09:00→21:27)
[2022-07-13] MEDS: POTASSIUM-SODIUM PHOSPHATE POWDER PACKET PO SCH ×2 (09:00→17:39)
[2022-07-13] MEDS: DOCUSATE SODIUM 100MG CAPSULE PO SCH ×2 (09:00→17:39)
[2022-07-13] MEDS: PANTOPRAZOLE SODIUM 40 MG/VIAL IV SCH (09:53)
[2022-07-13 12:26] LABS: HEMATOCRIT 26.5 % (42.0-52.0); HEMOGLOBIN 9.1 g/dL (14.0-18.0)
[2022-07-13] MEDS ORDERED: POLY119P2 MT (14:52)
[2022-07-13] MEDS ORDERED: DOCU-138 MT (14:52)
[2022-07-13] MEDS ORDERED: PANTOPRAZOLE 40MG DR TABLET PO SCH (15:30)
[2022-07-13] MEDS ORDERED: METO25TA6 MT (15:36)
[2022-07-13 16:57] LABS: PHOSPHORUS 2.8 mg/dL (2.5-4.9)
[2022-07-13] MEDS ORDERED: SODIUM CHLORIDE 0.9% 1,000 ML IV SCH (17:15)
[2022-07-13] MEDS: METOPROLOL TARTRATE 25MG TABLET PO SCH ×2 (17:39→21:28)
[2022-07-13] MEDS ORDERED: MAGNESIUM 4 G PREMIX 100 ML IV NR (19:00)
[2022-07-13] MEDS: SENNOSIDES/DOCUSATE SOD 8.6/50MG TABLET PO SCH (21:27)
== END 2022-07-13 21:55 | DRG 640 ==
LOC: ER 09:19 → MICUSO 13:11 → 7EST 21:21 → MICUSO 07-04 05:12 → 7EST 07-05 12:11 → CVICU 07-07 14:03 → 6EST 07-09 18:55 → 5EST 07-10 10:24
PROVIDERS: ADMIT Internal Medicine; ATTEND Internal Medicine
PROC: 02HV33Z Insertion of Infusion Device into Superior Vena Cava, Percutaneous Approach (ICD-10-PCS; 2022-07-01)
PROC: B5181ZA Fluoroscopy of Superior Vena Cava using Low Osmolar Contrast, Guidance (ICD-10-PCS; 2022-07-01)
PROC: B548ZZA Ultrasonography of Superior Vena Cava, Guidance (ICD-10-PCS; 2022-07-01)
PROC: 30233N1 Transfusion of Nonautologous Red Blood Cells into Peripheral Vein, Percutaneous Approach (ICD-10-PCS; 2022-07-04)
PROC: 0DJD8ZZ Inspection of Lower Intestinal Tract, Via Natural or Artificial Opening Endoscopic (ICD-10-PCS; principal; 2022-07-08)
DX: E86.0 Dehydration (principal); N17.0 Acute kidney failure with tubular necrosis; R57.8 Other shock; J44.1 Chronic obstructive pulmonary disease with (acute) exacerbation; I69.354 Hemiplegia and hemiparesis following cerebral infarction affecting left non-dominant side; K62.6 Ulcer of anus and rectum; E11.52 Type 2 diabetes mellitus with diabetic peripheral angiopathy with gangrene; G93.40 Encephalopathy, unspecified; I10 Essential (primary) hypertension; E87.5 Hyperkalemia; D50.9 Iron deficiency anemia, unspecified; E78.5 Hyperlipidemia, unspecified; Z20.822 Contact with and (suspected) exposure to COVID-19; E86.9 Volume depletion, unspecified; K56.41 Fecal impaction; N28.1 Cyst of kidney, acquired; E11.42 Type 2 diabetes mellitus with diabetic polyneuropathy; N32.89 Other specified disorders of bladder; Z89.511 Acquired absence of right leg below knee; Z90.79 Acquired absence of other genital organ(s); Z78.1 Physical restraint status
CPT/HCPCS: 36415; 36573; 71045; 73630; 74018; 74174; 74176; 75635; 76770; 78278; 80048; 80053; 81003; 82550; 82607; 82728; 82746; 82962; 83036; 83540; 83550; 83605; 83615; 83735; 84100; 84132; 84145; 84484; 85014; 85018; 85025; 85044; 85384; 86803; 86850; 86900; 86920; 87340; 87426; 87804; 92610; 93005; 93923; 94640; 94644; 99291; A6261; A9560; C1725; C1893; C9113; J0696; J1644; J1815; J2543; J2704; J2765; J2920; J3370; J3475; J3480; J3490; J7030; J7042; J7060; J7120; P9016; Q9967

== ENCOUNTER 2022-07-20 10:55 | Inpatient (IN) | payer OTHER, MEDICAID ==
[~2022-07-20] VITALS: Ht 175.3 cm; Wt 80.8 kg
[~2022-07-20 10:55] MED LIST: DOCU-138 MT; METO25TA6 MT; PANT40TA51 MT; POLY119P2 MT; SUCR1TAB30 PO
[2022-07-20] MEDS: INSULIN LISPRO 100 UNITS/ML SUBCUT SCH ×2 (12:00→18:20)
[2022-07-20] MEDS ORDERED: VANCOMYCIN 1G PREMIX 200 ML IV ONE (12:15)
[2022-07-20] MEDS ORDERED: PIPERACILLIN/TAZ 3.375G PREMIX 50 ML IV ONE (12:15)
[2022-07-20] MEDS ORDERED: SODIUM CHLORIDE 0.9% 1000ML BAG (SEPSIS BOLUS) IV ONE (12:15)
[2022-07-20 13:36] LABS: BASOPHILS % 1.3 % (0.0-2.0); EOSINOPHILS % 2.4 % (0.0-5.0); HEMATOCRIT. 30.8 % (42.0-52.0); HEMOGLOBIN. 10.6 g/dL (14.0-18.0); LYMPHOCYTES % 19.7 % (20.0-50.0); MEAN CORPUSCULAR HEMOGLOBIN 29.6 pg (28.0-32.0); MEAN CORPUSCULAR VOLUME 86.1 fL (80.0-94.0); MEAN PLATELET VOLUME 7.1 fl (7.4-10.4); MONOCYTES % 7.8 % (2.0-8.0); NEUTROPHILS % 68.8 % (40.0-76.0); PLATELET 645 x1000/uL (130-400); RED BLOOD CELL COUNT 3.57 mill/uL (4.7-6.1); RED CELL DISTRIBUTION WIDTH 16.4 % (11.6-14.6)
[2022-07-20 13:37] LABS: CHLORIDE 106 mEq/L (98-107)
[2022-07-20 13:40] LABS: INR 1.1; PARTIAL THROMBOPLASTIN TIME 29.9 sec (23.4-31.0); PROTHROMBIN TIME 11.4 sec (9.6-11.0)
[2022-07-20] MEDS ORDERED: KCL 10MEQ/50ML PREMIX 50 ML IV ONE (14:15)
[2022-07-20] MEDS ORDERED: ONDANSETRON HCL 4MG/2ML INJ IV PRN (14:45)
[2022-07-20] MEDS ORDERED: NITROGLYCERIN 0.4MG TABLET SL SL PRN (14:45)
[2022-07-20] MEDS: DEXT 5%/LACTATED RINGERS 1,000 ML IV SCH (14:45)
[2022-07-20] MEDS ORDERED: DEXTROSE 50% WATER 50ML SYRINGE IV PRN (14:45)
[2022-07-20] MEDS ORDERED: IPRATROPIUM/ALBUTEROL 0.5-3(2.5)MG/3ML NEB NEB PRN (14:45)
[2022-07-20] MEDS ORDERED: ACETAMINOPHEN 650MG SUPP PR PRN ×2 (14:45)
[2022-07-20] MEDS ORDERED: MEROPENEM-0.9% SODIUM CHLORIDE 50 ML IV SCH (15:00)
[2022-07-20] MEDS: ENOXAPARIN 40MG/0.4ML SYR SUBCUT SCH (15:00)
[2022-07-20] MEDS ORDERED: KCL 20MEQ/100ML PREMIX 100 ML IV NR (16:00)
[2022-07-20] MEDS: BLOOD SUGAR DIAGNOSTIC STRIP TEST SCH ×2 (17:00→21:00)
[2022-07-20] MEDS ORDERED: ENOXAPARIN 80MG/0.8ML SYR SUBCUT ONE (18:00)
[2022-07-20] MEDS ORDERED: ASPIRIN 81MG EC TABLET PO ONE (18:00)
[2022-07-20] MEDS: PANTOPRAZOLE SODIUM 40 MG/VIAL IV SCH (18:58)
[2022-07-21 01:15] VITALS: BP 160/74
[2022-07-21] MEDS: DEXT 5%/LACTATED RINGERS 1,000 ML IV SCH ×2 (04:01→18:20)
[2022-07-21] MEDS: PANTOPRAZOLE SODIUM 40 MG/VIAL IV SCH ×2 (05:41→18:26)
[2022-07-21] MEDS: BLOOD SUGAR DIAGNOSTIC STRIP TEST SCH ×4 (07:40→20:13)
[2022-07-21 08:00] VITALS: BP 151/76
[2022-07-21] MEDS: INSULIN LISPRO 100 UNITS/ML SUBCUT SCH ×4 (08:10→20:35)
[2022-07-21] MEDS ORDERED: PANTOPRAZOLE SODIUM 40 MG/VIAL IV SCH (09:00)
[2022-07-21] MEDS: DEXAMETHASONE 4MG TABLET PO SCH (09:49)
[2022-07-21] MEDS ORDERED: VANCOMYCIN 1G PREMIX 200 ML IV SCH ×2 (11:00)
[2022-07-21 11:44] LABS: BASOPHILS % 1.5 % (0.0-2.0); EOSINOPHILS % 3.2 % (0.0-5.0); HEMATOCRIT. 26.2 % (42.0-52.0); LYMPHOCYTES % 20.4 % (20.0-50.0); MEAN CORPUSCULAR HEMOGLOBIN 29.3 pg (28.0-32.0); MEAN CORPUSCULAR VOLUME 85.5 fL (80.0-94.0); MEAN PLATELET VOLUME 7.6 fl (7.4-10.4); MONOCYTES % 9.8 % (2.0-8.0); NEUTROPHILS % 65.1 % (40.0-76.0); PLATELET 493 x1000/uL (130-400); RED BLOOD CELL COUNT 3.06 mill/uL (4.7-6.1)
[2022-07-21 12:00] VITALS: BP 160/81
[2022-07-21] MEDS: ENOXAPARIN 40MG/0.4ML SYR SUBCUT SCH (14:23)
[2022-07-21] MEDS: KCL 20MEQ/100ML PREMIX 100 ML IV SCH ×5 (14:57→22:58)
[2022-07-21] MEDS ORDERED: CEFTRIAXONE 1GM PREMIX 50 ML IV SCH (15:30)
[2022-07-21 16:00] VITALS: BP 143/70
[2022-07-21] MEDS ORDERED: KCL 20MEQ/100ML PREMIX 100 ML IV SCH (18:00)
[2022-07-21 20:00] VITALS: BP 167/94
[2022-07-22] MEDS ORDERED: METO25TA6 PO (00:16)
[2022-07-22] MEDS ORDERED: TRAZ-251 MT (00:16)
[2022-07-22] MEDS ORDERED: ZINC220C6 PO (00:16)
[2022-07-22] MEDS ORDERED: [UNRECOGNIZED DRUG - CODE] PO (00:16)
[2022-07-22] MEDS ORDERED: ASPI-1497 MT (00:16)
[2022-07-22] MEDS ORDERED: MULT-622 MT (00:16)
[2022-07-22] MEDS ORDERED: AMIN30LI2 PO (00:16)
[2022-07-22] MEDS ORDERED: CLON0.1T PO (00:16)
[2022-07-22] MEDS ORDERED: TOPUD MT (00:16)
[2022-07-22] MEDS ORDERED: [UNRECOGNIZED DRUG - OTHER] IV (00:16)
[2022-07-22] MEDS ORDERED: [UNRECOGNIZED DRUG - CODE] TP (00:16)
[2022-07-22] MEDS ORDERED: LACT10SO30 MT (00:16)
[2022-07-22] MEDS ORDERED: INSLIS SUBCUT (00:16)
[2022-07-22] MEDS ORDERED: GABA-529 MT (00:16)
[2022-07-22] MEDS ORDERED: ACET-2708 MT (00:16)
[2022-07-22] MEDS ORDERED: ASCO500C18 MT (00:16)
[2022-07-22] MEDS ORDERED: SENN-257 PO (00:16)
[2022-07-22] MEDS ORDERED: NUTR1PAC14 PO (00:16)
[2022-07-22 00:30] VITALS: BP 148/79
[2022-07-22] MEDS: DEXT 5%/LACTATED RINGERS 1,000 ML IV SCH ×2 (06:00→20:57)
[2022-07-22] MEDS: PANTOPRAZOLE SODIUM 40 MG/VIAL IV SCH ×2 (06:00→19:05)
[2022-07-22] MEDS: BLOOD SUGAR DIAGNOSTIC STRIP TEST SCH ×4 (06:51→20:26)
[2022-07-22 08:00] VITALS: BP 156/80
[2022-07-22] MEDS: INSULIN LISPRO 100 UNITS/ML SUBCUT SCH ×4 (08:10→20:26)
[2022-07-22] MEDS: DEXAMETHASONE 4MG TABLET PO SCH (09:00)
[2022-07-22 11:52] VITALS: BP 135/70
[2022-07-22] MEDS ORDERED: CEFTRIAXONE 1,000 MG in DEXTROSE 5% WATER 50 ML IV SCH (13:00)
[2022-07-22 15:42] VITALS: BP 157/82
[2022-07-22 16:59] LABS: CHLORIDE 107 mEq/L (98-107)
[2022-07-22] MEDS: ENOXAPARIN 40MG/0.4ML SYR SUBCUT SCH (19:07)
[2022-07-22 20:24] VITALS: BP 157/81
[2022-07-23] VITALS: BP 132/76
[2022-07-23 04:00] VITALS: BP 130/7
[2022-07-23 04:30] VITALS: BP 130/75
[2022-07-23] MEDS: PANTOPRAZOLE SODIUM 40 MG/VIAL IV SCH (05:06)
[2022-07-23 06:09] LABS: INR 1.1; PROTHROMBIN TIME 11.9 sec (9.6-11.0)
[2022-07-23 06:27] LABS: BASOPHILS % 1.9 % (0.0-2.0); EOSINOPHILS % 3.6 % (0.0-5.0); HEMATOCRIT. 29.1 % (42.0-52.0); HEMOGLOBIN. 10.2 g/dL (14.0-18.0); LYMPHOCYTES % 30.6 % (20.0-50.0); MEAN CORPUSCULAR HEMOGLOBIN 29.5 pg (28.0-32.0); MEAN CORPUSCULAR VOLUME 84.3 fL (80.0-94.0); MEAN PLATELET VOLUME 7.1 fl (7.4-10.4); NEUTROPHILS % 51.9 % (40.0-76.0); PLATELET 756 x1000/uL (130-400); RED BLOOD CELL COUNT 3.45 mill/uL (4.7-6.1); RED CELL DISTRIBUTION WIDTH 16.1 % (11.6-14.6)
[2022-07-23] MEDS: BLOOD SUGAR DIAGNOSTIC STRIP TEST SCH ×4 (06:42→20:38)
[2022-07-23 07:33] LABS: CHLORIDE 107 mEq/L (98-107)
[2022-07-23] MEDS: INSULIN LISPRO 100 UNITS/ML SUBCUT SCH ×4 (08:10→21:30)
[2022-07-23] MEDS: DEXAMETHASONE 4MG TABLET PO SCH (09:08)
[2022-07-23] MEDS: DEXT 5%/LACTATED RINGERS 1,000 ML IV SCH ×2 (11:41→21:30)
[2022-07-23 12:00] VITALS: BP 133/71
[2022-07-23] MEDS ORDERED: LIDOCAINE HCL 1% 10 MG/ML 10ML VIAL ONE (13:38)
[2022-07-23] MEDS ORDERED: MIDAZOLAM HCL 2 MG/2 ML VIAL ONE (13:38)
[2022-07-23] MEDS ORDERED: PROPOFOL 200MG/20ML VIAL IV ONE (13:38)
[2022-07-23] MEDS: ENOXAPARIN 40MG/0.4ML SYR SUBCUT SCH (15:00)
[2022-07-23] MEDS ORDERED: CEFTRIAXONE 1GM PREMIX 50 ML IV SCH (15:00)
[2022-07-23] MEDS ORDERED: POVIDONE-IODINE 10% TOPICAL SOLN 240ML TOP NR (19:00)
[2022-07-23 20:00] VITALS: BP 145/85
[2022-07-24] VITALS: BP 143/84
[2022-07-24] MEDS: METOCLOPRAMIDE HCL 10MG/2ML VIAL IV SCH ×2 (05:17→12:55)
[2022-07-24] MEDS: BLOOD SUGAR DIAGNOSTIC STRIP TEST SCH ×2 (07:30→12:40)
[2022-07-24 08:00] VITALS: BP 136/76
[2022-07-24] MEDS: INSULIN LISPRO 100 UNITS/ML SUBCUT SCH ×2 (08:48→12:56)
[2022-07-24] MEDS: DEXAMETHASONE 4MG TABLET PO SCH (08:48)
[2022-07-24] MEDS ORDERED: FLUOXETINE HCL 10 MG CAPSULE PO SCH (09:00)
[2022-07-24 10:50] VITALS: BP 136/76
[2022-07-24 12:00] VITALS: BP 143/78
[2022-07-24] MEDS: DEXT 5%/LACTATED RINGERS 1,000 ML IV SCH (12:55)
[2022-07-24 16:00] VITALS: BP 141/73
== END 2022-07-24 16:47 | DRG 91 ==
LOC: ER 10:55 → MICUSO 14:32 → EDBEDREQTM 21:08 → 7WST 07-21 00:01
PROVIDERS: ADMIT Internal Medicine; ATTEND Internal Medicine
PROC: 0DB68ZX Excision of Stomach, Via Natural or Artificial Opening Endoscopic, Diagnostic (ICD-10-PCS; principal; 2022-07-23)
PROC: 0DH63UZ Insertion of Feeding Device into Stomach, Percutaneous Approach (ICD-10-PCS; 2022-07-23)
DX: G92.8 Other toxic encephalopathy (principal); E43 Unspecified severe protein-calorie malnutrition; E11.52 Type 2 diabetes mellitus with diabetic peripheral angiopathy with gangrene; N17.9 Acute kidney failure, unspecified; M86.9 Osteomyelitis, unspecified; K92.0 Hematemesis; I82.403 Acute embolism and thrombosis of unspecified deep veins of lower extremity, bilateral; F03.90 Unspecified dementia, unspecified severity, without behavioral disturbance, psychotic disturbance, mood disturbance, and anxiety; Z20.822 Contact with and (suspected) exposure to COVID-19; D63.8 Anemia in other chronic diseases classified elsewhere; D75.838 Other thrombocytosis; E11.69 Type 2 diabetes mellitus with other specified complication; E78.5 Hyperlipidemia, unspecified; E83.51 Hypocalcemia; E87.6 Hypokalemia; G93.89 Other specified disorders of brain; R47.1 Dysarthria and anarthria; I10 Essential (primary) hypertension; J44.9 Chronic obstructive pulmonary disease, unspecified; N32.89 Other specified disorders of bladder; R13.10 Dysphagia, unspecified; F43.21 Adjustment disorder with depressed mood; Z93.1 Gastrostomy status; Z79.4 Long term (current) use of insulin; Z89.511 Acquired absence of right leg below knee; Z89.512 Acquired absence of left leg below knee; Z86.73 Personal history of transient ischemic attack (TIA), and cerebral infarction without residual deficits; Z90.79 Acquired absence of other genital organ(s); Z68.26 Body mass index [BMI] 26.0-26.9, adult; K29.70 Gastritis, unspecified, without bleeding
CPT/HCPCS: 36415; 71045; 73630; 74018; 80048; 80053; 80202; 82962; 83605; 83880; 84145; 84484; 85025; 87426; 88305; 92610; 93005; 93970; 99285; C9113; J0696; J1650; J1815; J2185; J2250; J2543; J2704; J2765; J3370; J3480; J3490; J7030; J7060; J7121; J8540